=== PATIENT | male | born 1930 | race Caucasian/White ===

== ENCOUNTER 2016-07-30 06:05 | Emergency (ER) | payer MEDICARE, OTHER ==
[~2016-07-30 06:05] MED LIST: *UNABLE3; ACULARLS OPH; ASAB PO; ATEN100 PO; ATEN50 PO; AVODART PO; BETAP120 PO; BETAPACE80 PO; C1 PO; C2 PO; C25 PO; C5 PO; CAT1 PO; CO Q-10100 MG PO; CO Q10 PO; CORDARONE PO; COREG12 PO; COREG6 PO; COUMADIN3 MG PO; COZAAR100 MG PO; CRESTOR10 PO; CYANO1000T PO; CYMBALTA60 PO; D.O.S.100 MG PO; DANTRIUM50 MG OR; DARVOCET; DETROL1 PO; DIGITEK0.125 MG PO; DIOV160 PO; DIOV80 PO; DIOVAN320 MG PO; ELIQUIS 2.5 MG2.5 MG PO; ELIQUIS 5 MG TAB5 MG PO; ESSENTIAL ONE DAILY PO; FLOMAX4 PO; FLORASTOR250 MG PO; FORTAMET500 MG PO; GLUCPH PO; HALF81 PO; HCTZ12.5 PO; HUMALOG SC; IMDUR120 PO; IMDUR30 PO; LAN125 PO; LANOXIN; LIOR10 PO; LYRICA50 PO; MIRALAXPKT PO; MULTIVIT/MIN PO; MULTIVITAMI1 PO; NIACIN 500 PO; NITROQUICK0.4 MG SL; NITROSTAT0.4 MG PO; NITROSTAT0.4 MG SL; NORV5 PO; PRILO PO; PRILOSEC OTC20 MG PO; PRILOSEC40 MG PO; PROBIOTIC PO; PROSCAR5 PO; REFRES1 OPH; REFRESH OPH; SORINE80 MG PO; VANC125UDL PO; VANCOCIN HCL125 MG PO; VANCOMYCIN PO; VITAMIN B-121000 MC1 SL; ZOCOR20 PO; ZOCOR40 PO
[2016-07-30 06:30] LABS: INTERNATIONAL NORMAL RATI 1.4 UNITS (-); PARTIAL THROMBO TIME 26.8 SEC (22.5-37.2); PROTIME (NOT ORD) 16.7 SEC (12.0-14.5)
[2016-07-30 06:38] LABS: BASOPHILS 0.6 %; BASOPHILS ABSOLUTE 0.05 10/3/uL (0.0-0.16); EOSINOPHILS 4.3 %; EOSINOPHILS ABSOLUTE 0.38 10/3/uL (0.0-0.53); ER CBC TAT 0 Hrs 18 Mins; IMMATURE GRANULOCYTES 0.2 %; IMMATURE GRANULOCYTES ABSOLUTE 0.02 10/3/uL (0.0-0.11); LYMPHOCYTES 23.8 %; MEAN CORPUS HGB CONC 32.6 g/dL (32.0-36.0); MEAN CORPUSCULAR HEMOGLOB 29.7 pg (26.0-34.0); MEAN CORPUSCULAR VOLUME 91.1 fL (80-100); MEAN PLATELET VOLUME 10.5 fL (9.2-13.0); MONOCYTES 6.3 %; MONOCYTES ABSOLUTE 0.56 10/3/uL (0.21-1.20); NEUTROPHILS 64.8 %; NEUTROPHILS ABSOLUTE 5.71 10/3/uL (2.02-8.40); PLATELET COUNT 207 10/3/uL (150-400); RBC DISTRIBUTION WIDTH 14.9 % (12.0-16.0); RED CELL COUNT 4.72 10/6/uL (4.7-6.1); WHITE BLOOD CELLS 8.8 10/3/uL (4.5-10.5)
[2016-07-30 06:41] LABS: BUN (BLOOD UREA NITROGEN) 26 MG/DL (6-23); CALCIUM, SERUM 8.9 MG/DL (8.5-10.4); CHEST PAIN PROFILE TAT 0 Hrs 21 Mins; CHLORIDE, SERUM 110 MMOL/L (96-112); CO2 (CARBON DIOXIDE) 30 MMOL/L (24-34); CREATININE 1.09 MG/DL (0.70-1.30); GFR AFRICAN AMERICAN 71 ML/MIN (>=60); GFR NON AFRICAN AMERICAN 61 ML/MIN (>=60); GLUCOSE, SERUM 117 MG/DL (60-99); POTASSIUM, SERUM 4.1 MMOL/L (3.5-5.3); SODIUM, SERUM 145 MMOL/L (135-148); TROPONIN I 0.02 NG/ML (<0.05)
[2016-07-30 06:42] LABS: MANUAL DIFF NO %
== END 2016-07-30 07:38 | disposition home or self-care (01) ==
LOC: ER 06:05
PROVIDERS: Emergency Medicine
DX: I48.91 Unspecified atrial fibrillation (principal); I10 Essential (primary) hypertension; I25.2 Old myocardial infarction; Z95.5 Presence of coronary angioplasty implant and graft; E11.9 Type 2 diabetes mellitus without complications; Z95.1 Presence of aortocoronary bypass graft; Z88.5 Allergy status to narcotic agent; Z88.8 Allergy status to other drugs, medicaments and biological substances; Z79.899 Other long term (current) drug therapy; Z79.82 Long term (current) use of aspirin
CPT/HCPCS: 71010; 80048; 83735; 84484; 85025; 85610; 85730; 93005; 99285